=== PATIENT | male | born 1965 | race American Indian/Alaskan Native ===

== ENCOUNTER 2020-08-24 01:18 | Emergency (ER) | payer SELFPAY ==
[2020-08-24 01:43] VITALS: BP 125/86
--- NOTE | 2020-08-24 02:46 | XRay Report ---
CERVICAL SPINE 3 VIEWS INDICATION / CLINICAL INFORMATION: MAIN. COMPARISON: None available. FINDINGS: No fracture, subluxation or other significant abnormality. Signer Name: Max Albright MD Signed: 08/24/2020 2:42 AM Workstation Name: [id number]
--- NOTE | 2020-08-24 02:46 | XRay Report ---
LUMBAR SPINE 3 VIEWS INDICATION / CLINICAL INFORMATION: MAIN. COMPARISON: None available. FINDINGS: No fracture, subluxation or other significant abnormality. Signer Name: Max Albright MD Signed: 08/24/2020 2:41 AM Workstation Name: [id number]
[2020-08-24] MEDS ORDERED: ACETAMINOPHEN 500 MG TAB PO ONE (04:35)
[2020-08-24] MEDS ORDERED: IBUPROFEN 600 MG TAB PO ONE (04:35)
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
== END 2020-08-24 05:21 | disposition home or self-care (01) ==
LOC: ED 01:18
DX: M62.830 Muscle spasm of back (principal); M62.838 Other muscle spasm; Z79.1 Long term (current) use of non-steroidal anti-inflammatories (NSAID); Z79.899 Other long term (current) drug therapy; Z88.8 Allergy status to other drugs, medicaments and biological substances; V49.49XA Driver injured in collision with other motor vehicles in traffic accident, initial encounter; Y93.89 Activity, other specified; Y92.488 Other paved roadways as the place of occurrence of the external cause; Y99.8 Other external cause status
CPT/HCPCS: 72040; 72100; 99283